=== PATIENT | male | born 1940 ===

== ENCOUNTER 2018-01-14 07:18 | Day surgery (SDC) | payer OTHER, MEDICAID ==
[2018-01-12 05:28] VITALS: BMI 31.6
[2018-01-14] MEDS ORDERED: Phenylephrine 10 mg/ml Inj ONE (19:41)
[2018-01-14] MEDS ORDERED: Adenosine 90 mg/30mL IV ONE (19:41)
[2018-01-14] MEDS ORDERED: Iodixanol 320 MG/ML 100 ML BOTTLE IV ONE (19:41)
[2018-01-14] MEDS ORDERED: Iohexol 350mgl/ml 50 ML ONE (19:41)
[2018-01-14] MEDS ORDERED: Iodixanol 320 MG/ML 200 ML BOTTLE IV ONE (19:41)
[2018-01-14] MEDS ORDERED: HEPARIN SODIUM/NS 2,000 ML IV ONE (19:42)
[2018-01-14] MEDS ORDERED: Nitroglycerin 50mg in D5W 0 MG/0 ML BOTTLE IV ONE (19:42)
[2018-01-14] MEDS ORDERED: Lidocaine 2% Inj (20ml) ONE (19:44)
[2018-01-14] MEDS ORDERED: Midazolam 2 MG/2 ML VIAL ONE ×2 (19:54→20:06)
[2018-01-14] MEDS ORDERED: Labetalol 5 mg/ml Inj 20ML ONE (20:23)
[2018-01-15 00:41] VITALS: TEMP 97.5
[2018-01-15 00:42] VITALS: BP 127/64; PULSE 92; RESP 13
--- NOTE | 2018-01-15 06:03 | CARDCATH ---
PROCEDURE DATE: 01/14/2018 INDICATION: Mr. Evangelista Estrella is a 77-year-old male with extensive history of coronary artery disease, status post CABG, status post multivessel PCI stenting of LAD and RCA, who presented with complaints of unstable angina, underwent a nuclear stress test showing severe reversible lateral wall ischemia, and therefore was brought to the cleaner laboratory equipment for evaluation and treatment of unstable angina. PROCEDURES PERFORMED: Left heart catheterization with selective left and right coronary angiogram, selective left internal mammary artery to left anterior descending artery graft angiograms, percutaneous transluminal coronary angioplasty of mid left anterior descending artery in-stent restenosis with the use of 3.0 x 15 AngioSculpt Scoring balloon and subsequently by the 3.5 x 20 mm noncompliant balloon, lesion reduction from 90% down to 0%, GINI-3 flow, 6-Bahamian right femoral artery access. ANGIOGRAPHIC FINDINGS: Bypass PETERSON atretic, all vein grafts occluded, RCA patent, mid stent is widely patent, mild luminal irregularities. RCA proximal to mid 20% to 30% stenosis; right PDA patent; LAD is patent; the proximal stent within the mid LAD had 90% in-stent restenosis. Left circumflex diffuse disease, collateral flow of the obtuse marginal branch which is TROUBLE LINEMAN. Intervention performed using EBU guiding catheter. LAD was wide and angioplasty with an AngioSculpt Scoring balloon and subsequently with a noncompliant balloon, with lesion reduction down to 0%, GINI-3 flow. IMPRESSION: Successful revascularization of in-stent restenosis with plain old balloon angioplasty. RECOMMENDATION: Continue the patient on aspirin and Plavix for at least one year. Dual antiplatelet therapy, statins, beta-jagdeep, nitrates. Patient can be transferred back to [facility] in 3 hours. Osiel Thakur MD cc: Sergey Mccain MD
--- NOTE | 2018-01-15 09:11 | CARD ---
APPROVED REPORT EKG Measurement Heart [id number] CT [id number] <Conclusion> Normal sinus rhythm Normal ECG
== END 2018-01-15 02:51 | disposition short-term general hospital (02) ==
LOC: CATH 07:18 → 2RNO 13:38 → CATH 01-15 02:51
PROVIDERS: ATTEND Internal Medicine Interventional Cardiology
DX: I25.700 Atherosclerosis of coronary artery bypass graft(s), unspecified, with unstable angina pectoris (principal); T82.855A Stenosis of coronary artery stent, initial encounter; I10 Essential (primary) hypertension; E78.00 Pure hypercholesterolemia, unspecified; Z95.1 Presence of aortocoronary bypass graft; Z95.5 Presence of coronary angioplasty implant and graft; Y83.8 Other surgical procedures as the cause of abnormal reaction of the patient, or of later complication, without mention of misadventure at the time of the procedure
CPT/HCPCS: 85175; 92920; 93005; 93459; 99152; 99153; C1725 ×2; C1760; C1769 ×2; C1887 ×3; C2629; C9113; J0360; J1644 ×2; J2250; J3010; J7040; Q9967

== ENCOUNTER 2018-02-22 11:46 | Day surgery (SDC) | payer OTHER, MEDICARE, MEDICAID ==
[2018-02-17 17:19] VITALS: BMI 30.2
[2018-02-22] MEDS ORDERED: Lidocaine 2% Inj (20ml) ONE (11:59)
[2018-02-22] MEDS ORDERED: Midazolam 2 MG/2 ML VIAL ONE ×3 (12:00→13:53)
[2018-02-22] MEDS ORDERED: Verapamil 2 ML ONE (12:00)
[2018-02-22] MEDS ORDERED: Iodixanol 320 MG/ML 200 ML BOTTLE IV ONE (12:01)
[2018-02-22] MEDS ORDERED: Nitroglycerin 50mg in D5W 50 MG/250 ML BOTTLE IV ONE (12:02)
[2018-02-22] MEDS ORDERED: DiphenhydrAMINE 50 mg/ml Inj ONE (13:41)
[2018-02-22] MEDS ORDERED: Bacitracin 500 Units/gm Oint Foilpak UD TOP ONE (14:29)
[2018-02-22] MEDS ORDERED: Bacitracin 500 Units/gm Oint Foilpak UD ONE (16:40)
[2018-02-22 16:50] VITALS: TEMP 98.6
[2018-02-22 17:31] VITALS: PULSE 82
[2018-02-22 17:35] VITALS: BP 163/72; RESP 15; O2SAT 96
--- NOTE | 2018-02-22 18:56 | CARDCATH ---
PROCEDURE DATE: 02/22/2018 INDICATIONS: Mr. Estrella is a very pleasant 77-year-old male with past medical history significant for CAD, CABG, multiple angioplasty and stenting of LAD and the RCA, who presented with complaints of chest pain, was found to have positive troponin's, [id number] CA. He was initially on IV heparin and hydrated with fluids for renal protection secondary to acute kidney injury. He was subsequently transferred over from [place] to [place] for further treatment of [id number] CA. PROCEDURES PERFORMED: Left heart catheterization with selective left and right coronary angiogram via left distal radial arterial access approach, 6-Malaysian left radial artery access. Percutaneous transluminal coronary angioplasty stenting of proximal and mid left circumflex coronary artery. Deployment of 2 drug-eluting stents. Regeneration of 100% down to 0% GINI 3 flow. TECHNIQUES OF PROCEDURE: After obtaining informed consent, the patient was brought to the cardiac cath suite in post-absorptive and non-sedated state. The patient was prepped and draped in the usual sterile fashion. A 2% lidocaine was used for infiltration of anesthesia. Using modified Seldinger technique, a 6-Malaysian sheath was introduced into the left distal radial arterial access. Subsequently, over exchange length J-wire, JR4 and JL4 diagnostic catheters were used to engage the left and right coronary system. Angiograms were obtained in different orthogonal views. Subsequently, LV gram was obtained with the pigtail in the SEQUEIRA view. Hemodynamics were obtained and pullback gradients were noted. CORONARY ARTERY: Left main large-sized vessel bifurcates into LAD and left circumflex coronary artery. LAD has 3 stents which are patent with moderate in-stent restenosis with GINI 3 flow. Left circumflex proximal 100% occluded with no filling of the obtuse marginal branch noted. RCA: Large-sized vessel has 2 stents in the mid segment, which are widely patent. Right PDA and PLV patent. IMPRESSION: Acute left-circumflex occluded with collateral filling of the obtuse marginal branch via the right to left and left to left collaterals. TECHNICAL INTERVENTIONS: After reviewing the above mentioned radiographic findings, it was deemed imperative to take the left circumflex coronary artery over EBU 3.5 guiding catheter that was engaged. A Whisper wire was negotiated with the occluded vessel into the distal obtuse marginal and subsequently the lesion was predilated with a 2.0 balloon and then with the help of a 6-Malaysian guideliner, a 2.25 x 15 and a 2.5 x 8 mm Wagoner drug eluting stents were deployed in the proximal and mid left circumflex coronary artery with regeneration down to 0%. Final angiogram showed good GINI flow noted into the obtuse marginal branch and left circumflex system. IMPRESSION: Successful revascularization of the left circumflex, obtuse marginal 100% thrombotic occlusion with two drug eluting stents. RECOMMENDATIONS: The patient is to be kept on dual antiplatelet therapy. The patient can be transferred back to [facility] in 3 hours. Continue guideline-directed therapy, IV fluids fore renal protection. The patient can be discharged home in 24 hours after being transferred back to [place]. Thank you, Dr. Mccain for letting me participate in the care of your patient. Osiel Thakur MD cc: Sergey Mccain MD MTDD
== END 2018-02-22 20:00 | disposition short-term general hospital (02) ==
LOC: CATH 11:46 → CCU 14:38 → CATH 20:00
PROVIDERS: ATTEND Internal Medicine Interventional Cardiology
DX: I21.4 Non-ST elevation (NSTEMI) myocardial infarction (principal); I25.10 Atherosclerotic heart disease of native coronary artery without angina pectoris; T82.855A Stenosis of coronary artery stent, initial encounter; Z95.1 Presence of aortocoronary bypass graft; Z95.5 Presence of coronary angioplasty implant and graft; Y83.8 Other surgical procedures as the cause of abnormal reaction of the patient, or of later complication, without mention of misadventure at the time of the procedure
CPT/HCPCS: 85175; 93458; 99152; 99153; C1725 ×2; C1769 ×3; C1874 ×2; C1887 ×4; C9600; J1200; J1644 ×2; J2250; J3010; J7030; Q9966